=== PATIENT | female | born 1990 | race Caucasian/White ===

== ENCOUNTER 2017-05-24 01:52 | Emergency (ER) | payer SELFPAY ==
--- NOTE | ~2017-05-24 | ER ---
PATIENT'S NAME: STEPHANIE CHOI [facility] AGE: 27 Y [address] ROOM: [place] [address] LOCATION: [facility] ADMIT DATE: 05/24/2017 ER/Outpatient Report DISCHARGE DATE: 05/24/2017 FAMILY PHYSICIAN: Jovana Gutiérrez APRN ATTENDING PHYSICIAN: Abel Erazo CHIEF COMPLAINT: Wound on back. HISTORY OF PRESENT ILLNESS: Ms. Choi states she has a history of MS and for the last 2 days has had a wound on her low back. She states she was seen by local providers and was given antibiotics including Bactrim. She was able to "squeeze" some stuff out of it earlier tonight, but it has been causing significant pain since then. It has been particularly worse today. She has only tried 800 of ibuprofen 2 days ago for the pain. She denies any other acute issues. She does have active MS. No known longstanding deficits at this time. She has not been on Bactrim recently. She states she did have what appears to be a Bartholin gland cyst a couple months ago. She denies any other acute issues. PAST MEDICAL HISTORY: Documented on the record and reviewed by me. SOCIAL HISTORY: Documented on the record and reviewed by me. MEDICATIONS: Documented on the record and reviewed by me. ALLERGIES: DOCUMENTED ON THE RECORD AND REVIEWED BY ME. REVIEW OF SYSTEMS: All systems were reviewed and negative except as noted in the HPI. PHYSICAL EXAMINATION: VITAL SIGNS: Blood pressure 108/65, pulse 100, respiratory rate 84, temp is 98.3, and SpO2 is 100% on room air. GCS 15. GENERAL: An age appropriate female, in obvious discomfort, in no acute distress, sitting upright on exam table. NEUROLOGIC: Awake and alert. GCS 15. No focal deficits. No asymmetry. HEENT: Normocephalic, atraumatic. Eyes are PERRL. Oropharynx is clear. NECK: Supple. Trachea is midline. CHEST/HEART: Regular rate and rhythm. LUNGS: Grossly clear to auscultation bilateral. No rhonchi, wheezes, or PATIENT'S NAME: STEPHANIE CHOI [facility] AGE: 27 Y [address] ROOM: [place] [address] LOCATION: [facility] ADMIT DATE: 05/24/2017 ER/Outpatient Report DISCHARGE DATE: 05/24/2017 FAMILY PHYSICIAN: Jovana Gutiérrez APRN ATTENDING PHYSICIAN: Abel Erazo. ABDOMEN: Soft, nontender, and nondistended. BACK: Normal to inspection and palpation of the spine. The left low back is notable for what appears to be an abscess. Minimal fluctuance, significant induration, total measurements 3 x 8 mm. There is an eschar centrally. There is no true spinal tenderness, no paraspinal tenderness, range of motion appears to be intact. No CVA tenderness. EXTREMITIES: Warm and well-perfused. SKIN: Appears to be otherwise grossly intact other than some chronic scratches on the shoulders. LABS AND X-RAYS: None. IMPRESSION: Abscess of the left paraspinal region. EMERGENCY DEPARTMENT COURSE: The patient was seen and evaluated as above. No signs of systemic infection. Not consistent with sepsis, severe sepsis, or septic shock. The area in question was ultrasounded and found to have fluid amenable to drainage. This is superficial. It is not consistent with an epidural abscess. I do not believe that involves the spinal colon. The patient was given ice, which did improve her symptoms significantly. The area was cleaned with chlorhexidine. It was anesthetized with 2 mL of 1% lidocaine with epinephrine. The patient tolerated that well. An 11 blade was used to make a stab incision approximately 1 cm long centrally. All loculations were probed with a curved hemostats and approximately 3 mL of purulent material was expressed. Wound swab was taken and culture was ordered. The patient did tolerate the procedure relatively well. I felt as though I probed all areas adequately. The wound will be left open for spontaneous drainage. Bactroban applied and wound was dressed. The patient did tolerate procedure well. Of note, informed consent and time-out were performed. The patient is to continue with her Bactroban and Bactrim antibiotic. She is to follow up as scheduled on Sunday for reevaluation. Wound care including reasons to return were discussed with the patient. All questions were answered and the patient was discharged in good condition. She was discharged with tramadol and Zofran for breakthrough pain and instructed to alternate Tylenol and ibuprofen every 4 hours for 2 days. ABEL ERAZO MD PATIENT'S NAME: STEPHANIE CHOI [facility] AGE: 27 Y [address] ROOM: [place], [place] [address] LOCATION: [facility] ADMIT DATE: 05/24/2017 ER/Outpatient Report DISCHARGE DATE: 05/24/2017 FAMILY PHYSICIAN: Jovana Gutiérrez APRN ATTENDING PHYSICIAN: Abel Erazo/shemar /[id number] d: 05/24/17 0506 t: 05/29/17 1224, OUTPATIENT REPORT
== END 2017-05-24 03:13 | disposition disaster alternative care site (69) ==
LOC: GMED 01:52
PROC: 0H96XZZ Drainage of Back Skin, External Approach (ICD-10-PCS; principal; 2017-05-24)
DX: L02.212 Cutaneous abscess of back [any part, except buttock and flank] (principal); F17.210 Nicotine dependence, cigarettes, uncomplicated; Z79.899 Other long term (current) drug therapy